=== PATIENT | female | born 1945 | race Hispanic/Latino ===

== ENCOUNTER 2024-01-26 10:13 | Emergency (ER) | payer OTHER ==
[~2024-01-26] VITALS: Ht 152.4 cm; Wt 67.6 kg
[2024-01-26] MEDS: DEXAMETHASONE SOD PHOSPHATE 4 MG/ML 1ML VIAL IM ONE (11:05)
[2024-01-26] MEDS: KETOROLAC 60 MG VIAL (30MG/ML) IM ONE (11:06)
[2024-01-26 11:44] LABS: APPEARANCE,URINE CLEAR (CLEAR); BILIRUBIN,URINE NEGATIVE (NEGATIVE); COLOR,URINE YELLOW (YELLOW); GLUCOSE, URINE (UA) NEGATIVE (NEGATIVE); KETONES,URINE 5 mg/dL (NEGATIVE); LEUKOCYTE ESTERASE ,URINE NEGATIVE Leu/uL (NEGATIVE); NITRATE,URINE NEGATIVE (NEGATIVE); OCCULT BLOOD,URINE SMALL (NEGATIVE); PROTEIN,URINE 50 mg/dL (NEGATIVE); UROBILINOGEN,URINE 0.2 mg/dL (0.2-1.0)
[2024-01-26 11:51] LABS: ADD UA MICROSCOPIC YES
[2024-01-26 11:52] LABS: MUCUS,URINE RARE LPF (None Seen); SQUAMOUS EPITHELIAL CELL,UR RARE /HPF (0-2)
[2024-01-26] MEDS ORDERED: PRED20TA3 PO (16:00)
[2024-01-26] MEDS ORDERED: METH-811 PO (16:00)
[2024-01-26 16:39] VITALS: BP 144/77; PULSE 74; RESP 18; O2SAT 97
== END 2024-01-26 16:41 | disposition home or self-care (01) ==
LOC: EDH 10:13
DX: M54.41 Lumbago with sciatica, right side (principal); R31.9 Hematuria, unspecified; E78.00 Pure hypercholesterolemia, unspecified; I10 Essential (primary) hypertension
CPT/HCPCS: 99285; 74176; 87088; 81001; 72100; 96372 ×2; J1100; J1885